=== PATIENT | male | born 1955 | race Caucasian/White ===

== ENCOUNTER 2017-04-18 12:18 | Day surgery (SDC) | payer OTHER ==
[~2017-04-18 12:18] MED LIST: Buffered Lidocaine 0.9% SYRIN* 5 ML/SYR SYRINGE INTRADERM ONE
[2017-04-18] MEDS ORDERED: Lidocaine 1% MPF wEPI 200,000* 30 ML SDV ONE (13:06)
[2017-04-18] MEDS ORDERED: Sodium Bicarbonate 8.4% IV* 50 ML VIAL ONE (13:06)
[2017-04-18 14:15] VITALS: BP 140/86
--- NOTE | 2017-04-19 00:56 | OP ---
DATE OF OPERATION: 04/18/17 [facility] DATE OF : 57 SURGEON: Roger Gonzales MD SURGICAL NURSE: None. ANESTHESIOLOGIST: None. ANESTHESIA: Local only with 1% lidocaine with epinephrine and bicarbonate. PRE-OP DIAGNOSIS: Right index trigger finger. POST-OP DIAGNOSIS: Right index trigger finger. OPERATIVE PROCEDURE: Right index trigger finger release. INDICATIONS: Dain has had a progressive trigger finger that has recurred after steroid injections. It was very painful to him. We talked about risks and benefits. He wanted to proceed with the surgery. ESTIMATED BLOOD LOSS: 2 mL. COMPLICATIONS: None. FINDINGS: As expected. DESCRIPTION OF PROCEDURE: Dain was seen in the preoperative holding area. The correct side, site and procedure were identified. We came back to the operating room. The arm was then prepped and draped in the usual fashion. A time-out was performed. I made a 1 cm longitudinal incision over the A1 chauncey of the right index finger. Full thickness flaps were bluntly raised off of the tendon sheath. The 13-blade was used to release the tendon sheath just slightly radial off the midline in line with the tendon. The release was completed distally and proximally with the tenotomy scissors. Once there was absolutely no compression on the nerve, I had him flex and extend the finger multiple times. There was no more triggering. We irrigated out the wound. Skin was closed with 4-0 nylon suture. Wound was dressed with Xeroform, 4x4s, Mastisol, and Tegaderm dressing. He was then taken to the recovery room in stable condition. [id number]/[facility] #: [id number] MTDD
== END 2017-04-18 14:13 | disposition home or self-care (01) ==
LOC: OREAST 12:18
PROVIDERS: ATTEND Orthopaedic Surgery Hand Surgery
DX: M65.321 Trigger finger, right index finger (principal); I10 Essential (primary) hypertension; F41.9 Anxiety disorder, unspecified; F32.9 Major depressive disorder, single episode, unspecified; Z88.8 Allergy status to other drugs, medicaments and biological substances
CPT/HCPCS: J2001